=== PATIENT | female | born 1995 | race Two or more races ===

== ENCOUNTER 2022-05-01 14:05 | Emergency (ER) | payer MEDICAID, OTHER ==
[2022-05-01 14:15] VITALS: BP 153/95
[2022-05-01 14:53] LABS: Basophils # (auto) 0.1 10 ^3/uL (0-0.2); Basophils % (auto) 0.5 % (0.0-2.0); Eosinophils # (auto) 0.6 10 ^3/uL (0-0.8); Eosinophils % (auto) 5.1 % (0.0-7.0); Hematocrit 39.5 % (36.0-46.0); Hemoglobin 13.3 g/dL (12.2-16.2); Lymphocytes % (auto) 25.6 % (10.0-50.0); Mean Corpuscular Hemoglobin 28.5 pg (28.0-32.0); Mean Corpuscular Hgb Conc. 33.6 g/dL (32.0-36.0); Mean Corpuscular Volume 84.7 fL (80.0-100.0); Monocytes # (auto) 0.7 10 ^3/uL (0-1.3); Neutrophils # (auto) 7.3 10 ^3/uL (1.6-8.6); Neutrophils % (auto) 62.8 % (37.0-80.0); Nucleated Red Blood Cells % 0.1 %; Red Blood Cells 4.67 10^6/uL (4.0-5.20); Red Cell Distribution Width 16.6 % (11.8-14.3); White Blood Cell 11.6 10^3/uL (4.4-10.8)
[2022-05-01 17:52] LABS: Urine Bacteria NONE SEEN /hpf (None Seen); Urine Blood 3+ /uL (Negative); Urine Mucus FEW (None Seen); Urine Specific Gravity 1.025 (1.001-1.035); Urine WBC 3 /hpf (0 - 5)
== END 2022-05-01 20:56 | disposition home or self-care (01) ==
LOC: ER 14:05
DX: N93.9 Abnormal uterine and vaginal bleeding, unspecified (principal); R10.2 Pelvic and perineal pain; Z88.2 Allergy status to sulfonamides
CPT/HCPCS: 36415; 76856; 81001; 84702; 85025

== ENCOUNTER 2022-05-28 10:49 | Emergency (ER) | payer MEDICAID ==
[~2022-05-28] VITALS: Ht 160 cm; Wt 80.0 kg
[2022-05-28 11:41] LABS: Basophils # (auto) 0.1 10 ^3/uL (0-0.2); Basophils % (auto) 1.3 % (0.0-2.0); Eosinophils # (auto) 0.3 10 ^3/uL (0-0.8); Eosinophils % (auto) 4.4 % (0.0-7.0); Hematocrit 43.1 % (36.0-46.0); Hemoglobin 14.2 g/dL (12.2-16.2); Lymphocytes # (auto) 2.3 10 ^3/uL (0.4-5.4); Lymphocytes % (auto) 29.9 % (10.0-50.0); Mean Corpuscular Hgb Conc. 33.1 g/dL (32.0-36.0); Mean Corpuscular Volume 84.6 fL (80.0-100.0); Monocytes # (auto) 0.5 10 ^3/uL (0-1.3); Monocytes % (auto) 6.2 % (0.0-12.0); Neutrophils # (auto) 4.4 10 ^3/uL (1.6-8.6); Neutrophils % (auto) 58.2 % (37.0-80.0); Red Blood Cells 5.09 10^6/uL (4.0-5.20); Red Cell Distribution Width 18.1 % (11.8-14.3); White Blood Cell 7.6 10^3/uL (4.4-10.8)
[2022-05-28 11:51] LABS: Urine Bacteria NONE SEEN /hpf (None Seen); Urine Blood Negative /uL (Negative); Urine Mucus FEW (None Seen); Urine Specific Gravity 1.025 (1.001-1.035); Urine WBC 1 /hpf (0 - 5)
[2022-05-28 12:08] LABS: Albumin 4.1 g/dL (3.4-5.0)
[2022-05-28 12:12] LABS: BUN/Creatinine Ratio 17.6; Bilirubin, Total 0.4 mg/dL (0.2-1.0); Total Protein 8.2 g/dL (6.4-8.2)
[2022-05-28 12:28] VITALS: BP 125/83
== END 2022-05-28 16:14 | disposition home or self-care (01) ==
LOC: ER 10:49
DX: R10.2 Pelvic and perineal pain (principal); R53.83 Other fatigue; Z90.89 Acquired absence of other organs; Z88.2 Allergy status to sulfonamides
CPT/HCPCS: 36415; 80053; 81001; 84702; 85025

== ENCOUNTER 2022-10-07 21:23 | Emergency (ER) | payer MEDICAID ==
[~2022-10-07] VITALS: Ht 160 cm; Wt 76.2 kg
[2022-10-07] MEDS ORDERED: cloNIDine HCL 0.1 MG TAB PO ONE (21:45)
[2022-10-07] MEDS ORDERED: ACETAMINOPHEN 500 MG TAB PO ONE (21:45)
[2022-10-07 21:56] LABS: Basophils # (auto) 0.1 10 ^3/uL (0-0.2); Basophils % (auto) 1.3 % (0.0-2.0); Eosinophils # (auto) 0.4 10 ^3/uL (0-0.8); Eosinophils % (auto) 4.6 % (0.0-7.0); Hematocrit 38.1 % (36.0-46.0); Hemoglobin 12.4 g/dL (12.2-16.2); Lymphocytes # (auto) 3.3 10 ^3/uL (0.4-5.4); Lymphocytes % (auto) 37.8 % (10.0-50.0); Mean Corpuscular Hemoglobin 28.3 pg (28.0-32.0); Mean Corpuscular Hgb Conc. 32.7 g/dL (32.0-36.0); Mean Corpuscular Volume 86.6 fL (80.0-100.0); Monocytes # (auto) 0.6 10 ^3/uL (0-1.3); Monocytes % (auto) 6.5 % (0.0-12.0); Neutrophils # (auto) 4.3 10 ^3/uL (1.6-8.6); Neutrophils % (auto) 49.8 % (37.0-80.0); Nucleated Red Blood Cells % 0.1 %; Red Cell Distribution Width 17.5 % (11.8-14.3); White Blood Cell 8.6 10^3/uL (4.4-10.8)
[2022-10-07 22:04] VITALS: RESP 18; TEMP 97.9; O2SAT 98
[2022-10-07 22:12] LABS: Albumin 3.6 g/dL (3.4-5.0); Anion Gap 5 (5-15); BUN/Creatinine Ratio 12.8 (10.0-20.0); Blood Urea Nitrogen 10 mg/dL (7-18); Calcium 8.6 mg/dL (8.5-10.1); Carbon Dioxide 22 mmol/L (21-32); Chloride 116 mmol/L (98-107); GFR African American 115 mL/min; GFR Non-African American 95 mL/min; Glucose 123 mg/dL (74-106); Magnesium 2.5 mg/dL (1.6-2.6); Potassium 3.6 mmol/L (3.5-5.1); Sodium 143 mmol/L (136-145)
[2022-10-07 22:24] LABS: Alanine Aminotransferase 20 U/L (13-56); Alkaline Phosphatase 39 U/L (45-117); Aspartate Aminotransferase 12 U/L (15-37); Bilirubin, Total < 0.1 mg/dL (0.2-1.0); Total Protein 7.3 g/dL (6.4-8.2)
[2022-10-07 23:11] LABS: Urine Bacteria NONE SEEN /hpf (None Seen); Urine Blood 2+ /uL (Negative); Urine Hyaline Cast MOD /lpf (0 - 2); Urine Mucus FEW (None Seen); Urine Specific Gravity 1.034 (1.001-1.035); Urine WBC 1 /hpf (0 - 5)
[2022-10-07] MEDS ORDERED: CLON0.1T PO (23:45)
[2022-10-07] MEDS ORDERED: IBUP-1454 PO (23:45)
[2022-10-08 00:07] VITALS: BP 147/97; PULSE 67
== END 2022-10-08 00:08 | disposition home or self-care (01) ==
LOC: ER 21:23
DX: M94.0 Chondrocostal junction syndrome [Tietze] (principal); I10 Essential (primary) hypertension; F12.10 Cannabis abuse, uncomplicated; E66.9 Obesity, unspecified; Z88.2 Allergy status to sulfonamides; Z68.29 Body mass index [BMI] 29.0-29.9, adult
CPT/HCPCS: 36415; 71045; 80053; 81001; 83735; 84484; 85025; 93005